=== PATIENT | male | born 1950 | race Hispanic/Latino ===

== ENCOUNTER 2021-10-14 20:59 | Emergency (ER) | payer OTHER ==
[~2021-10-14] VITALS: Ht 198.1 cm; Wt 98.9 kg
[2021-10-14] MEDS ORDERED: TAMSULOSIN HCL 0.4 MG CAP.ER.24H ONE (21:22)
[2021-10-14] MEDS ORDERED: TAMSULOSIN HCL 0.4 MG CAP.ER.24H PO SCH (21:30)
[2021-10-14] MEDS ORDERED: TAMS-1 PO (21:51)
[2021-10-14 21:54] VITALS: BP 135/62
== END 2021-10-14 21:58 | disposition home or self-care (01) ==
LOC: EDH 20:59
DX: R33.0 Drug induced retention of urine (principal); E11.9 Type 2 diabetes mellitus without complications; E78.00 Pure hypercholesterolemia, unspecified; I10 Essential (primary) hypertension